=== PATIENT | female | born 2000 | race Caucasian/White ===

== ENCOUNTER 2021-01-25 03:07 | Emergency (ER) | payer SELFPAY ==
[~2021-01-25] VITALS: Ht 175.3 cm; Wt 75.0 kg
[2021-01-25] MEDS ORDERED: AUGMENTIN 875 MG TAB PO ONE (04:05)
[2021-01-25] MEDS ORDERED: KETO10TAB PO (04:13)
[2021-01-25] MEDS ORDERED: AUGM875T28 PO (04:13)
[2021-01-25] MEDS ORDERED: CIPR0.2S AS (04:13)
[2021-01-25] MEDS ORDERED: KETOROLAC 30 MG/ML 1ML VIAL IM ONE (04:15)
[2021-01-25 05:11] VITALS: BP 111/58
== END 2021-01-25 05:10 | disposition home or self-care (01) ==
LOC: M ED 03:07
DX: H66.012 Acute suppurative otitis media with spontaneous rupture of ear drum, left ear (principal); R09.81 Nasal congestion
CPT/HCPCS: 96372; 99283; J1885